=== PATIENT | female | born 2000 | race Asian ===

== ENCOUNTER 2022-07-11 08:09 | Emergency (ER) | payer OTHER, SELFPAY ==
--- NOTE | 2022-07-11 08:12 | ED.SKABFB ---
HPI - Skin/Abscess/Foreign Bdy General Chief complaint: Skin/Abscess/Foreign Body Stated complaint: ITCHY/IRRITATED SCALP Time Seen by Provider: 07/11/22 08:15 Source: patient and RN notes reviewed Mode of arrival: ambulatory Limitations: no limitations History of Present Illness HPI narrative: 22-year-old female presents to the [facility] with a dry itchy scalp for the last 3 weeks. No treatment prior to arrival. No fevers. Has not seek medical treatment before today. Related Data Home Medications Medication Instructions Recorded Confirmed aripiprazole 15 mg tablet (Abilify) 15 mg PO DAILY 02/07/20 07/11/22 lisdexamfetamine 60 mg capsule 60 mg PO DAILY 02/07/20 07/11/22 (Vyvanse) escitalopram oxalate 10 mg tablet 10 mg PO DAILY 05/03/22 07/11/22 (Lexapro) norgestimate-ethinyl estradiol 1 tablet PO DAILY 07/11/22 07/11/22 0.18 mg/0.215mg/0.25mg-35 mcg(28)tablet (Tri-Sprintec (28)) Allergies Allergy/AdvReac Type Severity Reaction Status Date / Time No Known Allergies Allergy Verified 07/11/22 08:21 Review of Systems Review of Systems: All systems reviewed & are unremarkable except as noted in HPI and below Constitutional: Constitutional: Reports no additional constitutional complaints, Denies chills and Denies fever(s) Eyes: Eyes: Reports no additional eye complaints ENT: Reports system reviewed and no additional complaints, except as documented Cardiovascular: Cardiovascular: Reports no additional cardiovascular complaints Respiratory: Respiratory: Reports no additional respiratory complaints Gastrointestinal: Gastrointestinal: Reports no additional gastrointestinal complaints Musculoskeletal: Musculoskeletal: Reports no additional musculoskeletal complaints Integumentary/Breasts: Skin/Breast: Reports as per HPI Neurologic: Reports system reviewed and no additional complaints, except as documented Psychiatric: Psychiatric: Reports no additional psychiatric complaints Allergic/Immunologic: Allergic/Immunologic: Reports no additional allergic/immunologic complaints [facility] Past Medical History Medical History (Updated 07/11/22 @ 08:32 by Lois Caldwell APRN) Bipolar disorder Depression (~2008) Vaginal discharge Surgical History Surgical History No pertinent past surgical history Social History Social History Smoking status: Never smoker Alcohol intake: never Substance use: never Comments At the time of my signature, I reviewed and agree with the nursing past medical, surgical, social, and family history. There is no relevant family history pertinent to the patient complaint. Exam Const: General: healthy appearing, no acute distress, alert and well nourished Nutritional Appearance: well nourished Orientation/consciousness: patient oriented x3 Limitations: no limitations HENMT: Head: normal to inspection Ears: external ears normal Eyes: General: appearance normal, both eyes and all related structures Pupils: Equal, round and reactive pupils present Neck: Neck: normal visual inspection, no lymphadenopathy and no meningeal signs Chest: Chest palpation & inspection: normal inspection of the chest Resp: Effort & Inspection: normal respiratory effort and no use of accessory muscles Auscultation: clear to auscultation bilaterally, no crackles, no rales, no rhonchi and no wheezes Cardio: Rate: regular rate Rhythm: regular rhythm GI: GI Palp: Yes Soft to palpation and No Tenderness to palpation present (GI) Back/Spine/Pelvis: Cervical Spine: normal cervical lordosis Thoracic/Lumbar Spine: thoracic and lumbar spine normal to inspection Skin: General skin exam: normal color Rashes: no rashes Wounds: no wounds Full body images: 1. dry crusted area without erythema to the occipital region. Neuro: General: patient oriented x3, moves all extremities,
[2022-07-11 08:18] VITALS: BP 111/70; PULSE 90; RESP 16; TEMP 37.1; O2SAT 100
== END 2022-07-11 08:40 | disposition home or self-care (01) ==
PROVIDERS: Emergency Provider Nurse Practitioner; PCP Internal Medicine
DX: L21.9 Seborrheic dermatitis, unspecified (principal); F32.A Depression, unspecified
CPT/HCPCS: 99211; G0463

== ENCOUNTER 2023-04-15 08:00 | Emergency (ER) | payer OTHER, SELFPAY ==
[2023-04-15 08:13] VITALS: BP 124/78; PULSE 119; RESP 16; TEMP 37.6; O2SAT 98
--- NOTE | 2023-04-15 08:14 | ED.DENTAL ---
HPI - Dental/Oral General Chief complaint: Dental/Oral Stated complaint: FEVER/TOOTHACHE/CHILLS/HEADACHE/SHAKY/VOMITING Time Seen by Provider: 04/15/23 08:14 Source: patient, RN notes reviewed and old records reviewed Mode of arrival: ambulatory Limitations: no limitations History of Present Illness HPI Narrative: 23 year old female who presents to [facility] with complaints of having fever last night and today with chills and sweats, headache, did have emesis X1 yesterday. Patient reports that her right lower molar broke off a few weeks ago and she is having discomfort to #31 tooth with tooth area broken off posteriorly with mild redness of surrounding gum. Patient denies any difficulty with her breathing or any difficulty swallowing, no trismus noted, able to control own secretions with no facial swelling noted. Patient reports that she has been taking Ibuprofen for her discomfort and fever. Patient reports that she had dental appointment this morning but cancelled it due to having fevers. patient reports also that she was put on new medication for her ADHD but having problems with insurance coverage, had been on Vyvanse previously and has been without any medication for a week. MD Complaint: tooth pain Location: Tooth # (31) Onset (ago): week(s) Duration: worsening Severity scale (1-10): 3 Exacerbating factors: chewing Associated symptoms: fever and gum swelling Treatment prior to arrival: oral analgesic Related Data Home Medications Medication Instructions Recorded Confirmed aripiprazole 15 mg tablet (Abilify) 15 mg PO DAILY 02/07/20 10/12/22 lisdexamfetamine 60 mg capsule 60 mg PO DAILY 02/07/20 10/12/22 (Vyvanse) escitalopram oxalate 10 mg tablet 10 mg PO DAILY 05/03/22 10/12/22 (Lexapro) Allergies Allergy/AdvReac Type Severity Reaction Status Date / Time No Known Allergies Allergy Verified 10/12/22 12:52 Review of Systems Review of Systems: CONSTITUTIONAL: Reports fever, chills, or sweats. ENT: Denies rhinorrhea, congestion, sore throat, or otalgia. Reports dental pain to #31 tooth with back of tooth broken off and some gum redness. CARDIOVASCULAR: Denies chest pain, palpitations, or edema. RESPIRATORY: Denies cough or dyspnea. SKIN: Denies rash or itching. MUSCULOSKELETAL: Denies myalgia. NEUROLOGIC: Reports intermittent headache All systems reviewed & are unremarkable except as noted in HPI and below PMFSH Past Medical History Medical History ADHD (attention deficit hyperactivity disorder) Bipolar disorder Depression (~2008) Vaginal discharge Surgical History Surgical History No pertinent past surgical history Social History Social History (Updated 04/15/23 @ 08:48 by Jennifer Alvarado NP) Smoking status: Never smoker Alcohol intake: never Substance use: never Living arrangements: with family Gender identity (if verbalized by the patient): Female Comments At time of signature, agree with nursing past medical, surgical, social and family history. There is no relevant family history pertinent to the presenting complaint Exam Narrative: GENERAL: Well-appearing, well-nourished, and in no acute distress.has been febrile HEAD: Normocephalic, atraumatic. EYES: PERRLA and EOMI. ENT: Nares clear, no rhinorrhea or epistaxis. Mucous membranes moist. TM's normal, throat pink with no swelling. Broken tooth #31 with some gum redness, no trismus or any Manav angina noted. NECK: Supple.no lymphadenopathy CHEST: Clear to auscultation. No respiratory distress.SAO2 98% on room air HEART: Regular rate and rhythm. No murmur heard. Normal peripheral pulses. SKIN: Warm, dry, no rash. NEURO: No focal deficits. Alert and oriented x3. intermittent headache Course Course Emergency Course: Patient is aware of diagnosis, understands and agrees to treatment plan. Laura wiley
== END 2023-04-15 08:36 | disposition home or self-care (01) ==
PROVIDERS: Emergency Provider Registered Nurse; PCP Internal Medicine
DX: S02.5XXA Fracture of tooth (traumatic), initial encounter for closed fracture (principal); X58.XXXA Exposure to other specified factors, initial encounter; F90.9 Attention-deficit hyperactivity disorder, unspecified type; F32.A Depression, unspecified
CPT/HCPCS: 99213; G0463

== ENCOUNTER 2025-02-28 15:49 | Emergency (ER) | payer OTHER, SELFPAY ==
--- NOTE | ~2025-02-28 | XR_ITS ---
XR shoulder LT min 2V 02/28/2025 16:19 INDICATION: Left shoulder pain PROCEDURE: 4 views left shoulder COMPARISON: No prior studies for comparison. FINDINGS: Fracture, dislocation or subluxation is not identified. The soft tissues appear within norm al limits. No foreign bodies are identified. IMPRESSION: 1: NO ACUTE BONE OR JOINT ABNORMALITY IDENTIFIED. Reviewed, dictated and finalized at location B.
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
[2025-02-28 16:02] VITALS: BP 144/86; PULSE 97; RESP 20; TEMP 36.7; O2SAT 98
== END 2025-02-28 16:40 | disposition home or self-care (01) ==
PROVIDERS: Emergency Provider Nurse Practitioner; PCP Internal Medicine
DX: M25.512 Pain in left shoulder (principal); V49.9XXA Car occupant (driver) (passenger) injured in unspecified traffic accident, initial encounter; F31.9 Bipolar disorder, unspecified
CPT/HCPCS: 73030; 99213; G0463